=== PATIENT | male | born 1965 | race Caucasian/White ===

== ENCOUNTER 2016-09-03 13:27 | Day surgery (SDC) | payer OTHER ==
[~2016-09-03 13:27] MED LIST: Buffered Lidocaine 0.9% SYRIN* 5 ML/SYR SYRINGE ONE; Bupivacaine 0.5% SDV PF* 30 ML VIAL ONE; Cyclopentolate 1% OPTH.SOL* 2 ML BTL ONE; Flurbiprofen 0.03% OPTH.SOL* 2.5 ML BTL ONE; Lidocaine 1% MPF* 2 ML VIAL ONE; Neomycin/Polymy/Dex OPHTH.OIN* 3.5 GM ONE; Phenylephrine 2.5% OPTH.SOL* 2 ML BTL ONE; Povidone Iodine 5% OPTH* 30 ML BTL ONE; Sodium Bicarbonate 8.4% IV* 50 ML VIAL ONE; Tetracaine 0.5% OPTH.SOL 4 ML* 1 DROP BTL ONE; Tropicamide 1% OPTH.SOL* BTL ONE; acetaZOLAMIDE TAB* 250 MG ONE
[2016-09-03] MEDS ORDERED: Bupivacaine 0.25% SDV* 30 ML ONE (15:52)
[2016-09-03 16:45] VITALS: BP 138/76
--- NOTE | 2016-09-04 14:19 | OP ---
DATE OF OPERATION: 09/03/16 [facility] DATE OF : 63 SURGEON: Librado Iqbal MD DECORATING INSPECTOR: PRABHU Alcocer ANESTHESIOLOGIST: None. ANESTHESIA: Local only with 0.5% Marcaine. PRE-OP DIAGNOSIS: Right middle trigger finger. POST-OP DIAGNOSIS: Right middle trigger finger. OPERATIVE PROCEDURE: Right middle trigger finger release of the A1 sandy. INDICATIONS: Donovan had a steroid shot in the past, it worked great and the trigger finger got completely waived, but then it came back to the point that it was pretty much as bad as it was before and even worse. It was frankly catching every time he had flexed the finger down. We talked about doing a trigger finger release with its detail and risks and benefits, he elected to proceed. ESTIMATED BLOOD LOSS: 2 mL. COMPLICATIONS: None. FINDINGS: As expected. DESCRIPTION OF PROCEDURE: He was seen in the preoperative holding area. The correct site, side, and procedure were identified. The arm was prepped and draped in usual fashion. A formal time-out was performed. I began by making a 1-cm longitudinal incision directly over the A1 sandy of the right middle finger. Dissection was carried down bluntly with a tenotomy scissors. Three Ragnell retractors were placed to expose the A1 sandy. There was no overlying soft tissue. So, I went ahead and took the 15 blade and I longitudinally incised A1 sandy. I then extended the release proximally and distally with the tenotomy scissors, again using the Ragnell retractors for direct visualization. Once the release was finished, I had him make multiple fists and see if he get it to catch or triggering. We could not induce any triggering. Therefore, irrigated out the wound and the skin was closed with 4- 0 chromic gut suture. The tourniquet was deflated, the hand pinked up immediately. We then dressed the wound with Xeroform, 4 x 4, sterile Webril and an Desmond bandage. He was then taken to the recovery room in stable condition. [id number]/[facility] #: [id number]
== END 2016-09-03 16:45 | disposition home or self-care (01) ==
LOC: OREAST 13:27
PROVIDERS: ATTEND Orthopaedic Surgery Hand Surgery
DX: M65.331 Trigger finger, right middle finger (principal); Z87.891 Personal history of nicotine dependence; G47.33 Obstructive sleep apnea (adult) (pediatric)
CPT/HCPCS: A9270-GY